=== PATIENT | female | born 1975 | race Two or more races ===

== ENCOUNTER → 2016-12-03 | Outpatient (CLI) | payer BC | LOC: RAD 07:28 | PROVIDERS: ATTEND Specialist | DX: C50.919 Malignant neoplasm of unspecified site of unspecified female breast (principal) | CPT/HCPCS: 70553; 78306; A9577; A9503; Q9969 ==

== ENCOUNTER → 2016-12-05 | Outpatient (CLI) | payer BC | LOC: RAD 07:40 | PROVIDERS: ATTEND Specialist | DX: C50.919 Malignant neoplasm of unspecified site of unspecified female breast (principal); R10.9 Unspecified abdominal pain; R07.9 Chest pain, unspecified | CPT/HCPCS: 71260; 74177 ==

== ENCOUNTER 2017-09-22 17:55 | Emergency (ER) | payer BC ==
[2017-09-22] MEDS ORDERED: NORMAL SALINE 1000 ML 1,000 ML IV ONE (18:35)
[2017-09-22] MEDS ORDERED: DIPHENHYDRAMINE HCL 50 MG/ML VIAL IV ONE (18:35)
[2017-09-22] MEDS ORDERED: METOCLOPRAMIDE HCL INJ/PF 10 MG/2 ML SDV IV ONE (18:35)
--- NOTE | 2017-09-22 18:38 | ER Document Report ---
ED Medical Screen (RME) - General Chief Complaint: Headache Stated Complaint: HEADACHE Time Seen by Provider: 09/22/17 18:35 Notes: Patient has a history of breast cancer with metastases to the lymph nodes. She is undergone chemotherapy in April of this year. She finished radiation 1 week ago. She had a mastectomy in June of this year. He states starting yesterday she has a diffuse throbbing headache. She states she does not have any metastasis to the brain that she knows of. She states she has a history of cluster headaches but this does not feel similar to that. She denies any vomiting. No cough cold or congestion. Patient states she is currently taking tamoxifen and started this 4 days ago.. She is also currently enrolled in a research trial but has not started the research drug at this time. TRAVEL OUTSIDE OF THE [place] IN LAST 30 DAYS: No - Related Data Allergies/Adverse Reactions: No Known Allergies Allergy (Unverified 09/22/17 18:07) Past Medical History Renal/ Medical History: Denies: Hx Peritoneal Dialysis Physical Exam - Vital signs Vitals: Temp Pulse Resp BP Pulse Ox 99.4 F 105 H 16 119/69 96 09/22/17 18:07 09/22/17 18:07 09/22/17 18:07 09/22/17 18:07 09/22/17 18:07 Course - Vital Signs Vital signs: Temp Pulse Resp BP Pulse Ox 99.4 F 105 H 16 119/69 96 09/22/17 18:07 09/22/17 18:07 09/22/17 18:07 09/22/17 18:07 09/22/17 18:07
[2017-09-22 19:22] LABS: ABSOLUTE EOSINOPHILS # (AUTO) 0.1 10^3/uL (0.0-0.6); ABSOLUTE LYMPHOCYTES (AUTO) 0.5 10^3/uL (0.5-4.7); ABSOLUTE MONOCYTES (AUTO) 0.6 10^3/uL (0.1-1.4); ABSOLUTE NEUT (AUTO) 5.3 10^3/uL (1.7-8.2); BASOPHILS % (AUTO) 0.3 % (0-2); EOSINOPHILS % (AUTO) 0.9 % (0-6); HEMATOCRIT 40.1 % (36.0-47.0); HEMOGLOBIN 13.9 g/dL (12.0-15.5); HGB HCT DIFFERENCE 1.6; LYMPHOCYTES % (AUTO) 7.6 % (13-45); MEAN CORPUSCULAR HGB CONC 34.7 g/dL (32.0-36.0); MEAN CORPUSCULAR VOLUME 87 fl (80-97); MONOCYTES % (AUTO) 8.9 % (3-13); RED BLOOD COUNT 4.63 10^6/uL (3.72-5.28); RED CELL DISTRIBUTION WIDTH 12.3 % (11.5-14.0); SEGMENTED NEUTROPHILS % (AUTO) 82.3 % (42-78); WHITE BLOOD COUNT 6.4 10^3/uL (4.0-10.5)
--- NOTE | 2017-09-22 19:34 | RADIOLOGY REPORT (SQ) ---
EXAM DESCRIPTION: CT HEAD WITHOUT COMPLETED DATE/TIME: 09/22/2017 7:15 pm REASON FOR STUDY: horvath/hx met cancer COMPARISON: None. TECHNIQUE: Axial images acquired through the brain without intravenous contrast. Images reviewed wi th bone, brain and subdural windows. Images stored on PACS. All CT scanners at this facility use dose modulation, iterative reconstruction, and/or weight based d osing when appropriate to reduce radiation dose to as low as reasonably achievable (ALARA). [facility]: Dose Right [facility]: CareDose [facility]: Dose Right [facility]: Teradose 4D [facility]: Smart [employer] RADIATION DOSE: Up-to-date CT equipment and radiation dose reduction techniques were employed. CTDIv ol: 64.6 mGy. DLP: 1034 mGy-cm. mGy. LIMITATIONS: None. FINDINGS: VENTRICLES: Normal size and contour. CEREBRUM: No masses. No hemorrhage. No midline shift. No evidence for acute infarction. Normal gra y/white matter differentiation. No areas of low density in the white matter. CEREBELLUM: No masses. No hemorrhage. No alteration of density. No evidence for acute infarction. EXTRAAXIAL SPACES: No fluid collections. No masses. ORBITS AND GLOBE: No intra- or extraconal masses. Normal contour of globe without masses. CALVARIUM: No fracture. PARANASAL SINUSES: No fluid or mucosal thickening. SOFT TISSUES: No mass or hematoma. OTHER: No other significant finding. IMPRESSION: NORMAL BRAIN CT WITHOUT CONTRAST. EVIDENCE OF ACUTE STROKE: NO. COMMENT: Quality ID # [id number]: Final reports with documentation of one or more dose reduction techniques (e.g., Automated exposure control, adjustment of the mA and/or kV according to patient size, use of iterative reconstruction technique) TECHNICAL DOCUMENTATION: JOB ID: [id number]- All Rights Reserved
[2017-09-22 19:40] LABS: ALANINE AMINOTRANSFERASE 62 U/L (9-52); ALBUMIN 4.7 g/dL (3.5-5.0); ALKALINE PHOSPHATASE 79 U/L (38-126); ANION GAP 13 (5-19); ASPARTATE AMINO TRANSFERASE 48 U/L (14-36); BILIRUBIN,DIRECT 0.4 mg/dL (0.0-0.4); BLOOD UREA NITROGEN 15 mg/dL (7-20); CALCIUM 9.9 mg/dL (8.4-10.2); CARBON DIOXIDE 29 mmol/L (22-30); CHLORIDE 99 mmol/L (98-107); CREATININE RESULT 0.92 mg/dL (0.52-1.25); GLUCOSE 94 mg/dL (75-110); POTASSIUM 4.5 mmol/L (3.6-5.0); SODIUM 140.9 mmol/L (137-145); TOTAL PROTEIN 7.5 g/dL (6.3-8.2)
[2017-09-22] MEDS ORDERED: PROCHLORPERAZINE EDISYLATE INJ 10 MG/2 ML VIAL IV ONE (20:06)
[2017-09-22] MEDS ORDERED: KETOROLAC TROMETHAMINE INJ/PF 30 MG/1 ML SDV IV ONE (20:07)
--- NOTE | 2017-09-22 21:15 | ER Document Report ---
ED Headache - General Chief Complaint: Headache Stated Complaint: HEADACHE Time Seen by Provider: 09/22/17 18:35 Notes: Patient is a 42-year-old female with a past medical history of breast cancer on tamoxifen maintenance therapy but no active chemotherapy who presents with a headache that has been present for the past 24 hours. She states that it as a severe, throbbing, bifrontal pain. She notes is worsened by lights, sounds and movement. She has tried Tylenol at home with no improvement of the headache. She has a history of cluster headaches but does not typically have headaches of this nature. The headache was gradual in onset and did get progressively worse. She denies any focal weakness, numbness, or altered mental status. She has not had any fever or constitutional symptoms. She has not seen her primary doctor regarding today's concerns. TRAVEL OUTSIDE OF THE [place] IN LAST 30 DAYS: No - Related Data Allergies/Adverse Reactions: No Known Allergies Allergy (Unverified 09/22/17 18:07) Home Medications: Current Home Medications Lorazepam [Lorazepam] 1 mg PO BID PRN 09/22/17 [History] Morphine Sulfate 15 mg PO Q6 PRN 09/22/17 [History] Past Medical History - General Information source: Patient - Social History Smoking Status: Never Smoker Frequency of alcohol use: None Drug Abuse: None Lives with: Spouse/Significant other Family History: Reviewed & Not Pertinent Patient has suicidal ideation: No Patient has homicidal ideation: No Renal/ Medical History: Denies: Hx Peritoneal Dialysis Review of Systems - Review of Systems Notes: Constitutional: Negative for fever. HENT: Negative for sore throat. Eyes: Negative for visual changes. Cardiovascular: Negative for chest pain. Respiratory: Negative for shortness of breath. Gastrointestinal: Negative for abdominal pain, vomiting or diarrhea. Genitourinary: Negative for dysuria. Musculoskeletal: Negative for back pain. Skin: Negative for rash. Neurological: Positive for headache 10 point ROS negative except as marked above and in HPI. Physical Exam - Vital signs Vitals: Temp Pulse Resp BP Pulse Ox 99.4 F 105 H 16 119/69 96 09/22/17 18:07 09/22/17 18:07 09/22/17 18:07 09/22/17 18:07 09/22/17 18:07 Interpretation: Tachycardic Notes: PHYSICAL EXAMINATION: GENERAL: Well-appearing, well-nourished and in no acute distress. HEAD: Atraumatic, normocephalic. EYES: Pupils equal round and reactive to light, extraocular movements intact, sclera anicteric, conjunctiva are normal. ENT: nares patent, oropharynx clear without exudates. Moist mucous membranes. NECK: Normal range of motion, supple without lymphadenopathy LUNGS: Breath sounds clear to auscultation bilaterally and equal. No wheezes rales or rhonchi. HEART: Regular rate and rhythm without murmurs ABDOMEN: Soft, nontender, normoactive bowel sounds. No guarding, no rebound. No masses appreciated. EXTREMITIES: Normal range of motion, no pitting or edema. No cyanosis. NEUROLOGICAL: Face symmetric. Tongue protrudes midline. Extraocular motions intact. Pupils are 2 mm and equally reactive. Normal speech, normal gait. 5 out of 5 strength in both the distal and proximal upper and lower extremities bilaterally. Sensation is grossly intact throughout. Finger to nose testing normal. Pronator drift normal. PSYCH: Normal mood, normal affect. SKIN: Warm, Dry, normal turgor, no rashes or lesions noted. Course - Re-evaluation Re-evalutation: 09/22/17 21:10 Presentation of a headache that appears to be most consistent with tension versus migrainous type headache. Headache was not maximal in onset, patient has no focal neurologic deficits, no nuchal rigidity, vital signs within normal limits, no papilledema, and patient is overall well in appearance. Based on clinical history and examination I do not suspect an acute subarachnoid hemorrhage, dural venous sinus thrombosis, acute meningitis, or intercranial mass. In triage labs were ordered and a noncontrasted head CT was also ordered apparently to evaluate for metastases to the brain. This noncontrasted CT did not demonstrate any evidence of an acute metastases but patient does not have a clinical history to suggest this diagnosis either and has again no focal neurologic deficit on examination to suggest an acute mass-effect. At this time will discharge with return precautions and follow-up recommendations. Verbal discharge instructions given a the bedside and opportunity for questions given. Medication warnings reviewed. Patient is in agreement with this plan and has verbalized understanding of return precautions and the need for primary care follow-up in the next 24-72 hours. - Vital Signs Vital signs: Temp Pulse Resp BP Pulse Ox 98.5 F 102 H 16 104/59 L 97 10/30/17 21:25 09/22/17 21:25 09/22/17 21:25 09/22/17 21:25 09/22/17 21:25 - Laboratory Result Diagrams: 09/22/17 19:00 09/22/17 19:00 Laboratory results interpreted by me: 09/22/17 09/22/17 19:00 19:00 Seg Neutrophils % 82.3 H Lymphocytes % 7.6 L AST 48 H ALT 62 H - Diagnostic Test Radiology reviewed: Image reviewed, Reports reviewed Radiology results interpreted by me: 09/22/17 21:14 CT head: No acute intracranial bleed or evidence of metastases although this is a noncontrasted scan. Discharge - Discharge Clinical Impression: Headache Qualifiers: Headache type: unspecified Headache chronicity pattern: acute headache Intractability: not intractable Qualified Code(s): R51 - Headache Vomiting Qualifiers: Vomiting type: unspecified Vomiting Intractability: non-intractable Nausea presence: with nausea Qualified Code(s): R11.2 - Nausea with vomiting, unspecified Condition: Good Disposition: HOME, SELF-CARE Additional Instructions: You have been seen in the Emergency Department (ED) for a headache. Please use Tylenol (acetaminophen) or Motrin (ibuprofen) as needed for symptoms, but only as written on the box. As we have discussed, please follow up with your primary care doctor as soon as possible regarding today's ED visit and your headache symptoms. Call your doctor or return to the ED if you have a worsening headache, sudden and severe headache, confusion, slurred speech, facial droop, weakness or numbness in any arm or leg, extreme fatigue, or other symptoms that concern you.
[2017-09-22 21:25] VITALS: BP 104/59
== END 2017-09-22 21:27 | disposition home or self-care (01) ==
LOC: ER 17:55
DX: R51 Headache (principal); R11.2 Nausea with vomiting, unspecified; R00.0 Tachycardia, unspecified; Z85.3 Personal history of malignant neoplasm of breast; Z79.899 Other long term (current) drug therapy
CPT/HCPCS: 99284; 96361; 96374; 96375; 36415; 85025; 80053; 70450; J1200; J1885; J2765; J0780; J7030

== ENCOUNTER 2018-01-17 22:46 | Emergency (ER) | payer BC ==
[2018-01-18] MEDS ORDERED: CEPHALEXIN 500 MG CAPSULE PO ONE (00:47)
[2018-01-18] MEDS ORDERED: SULFAMETHOXAZOLE/TRIMETHOPRIM 800-160 MG TABLET PO ONE (00:47)
[2018-01-18] MEDS ORDERED: HYDROCODONE/ACETAMINOPHEN 5-325 MG (6 TAB/ER DISP) PO PRN (00:47)
--- NOTE | 2018-01-18 00:56 | ER Document Report ---
ED General - General Chief Complaint: Swelling Stated Complaint: SWELLING IN NECK Time Seen by Provider: 01/18/18 00:24 Notes: Patient is a 42-year-old female with a past medical history of breast cancer currently in remission who presents with 2 weeks of increasing swelling and pain to the left base of her scalp. She noticed an area of soft tissue swelling and redness that has gotten progressively worse over that period of time. She states she became concerned when she noticed multiple lymph nodes also becoming quite swollen. She describes there is a dull, constant, throbbing pain. She notes any touching or pressure the area worsens the pain. She has not tried any to improve her pain. She denies any history of the same in the past. She denies any fever or constitutional symptoms. No weight loss. She has not yet followed up with her primary care doctor regarding this concern. TRAVEL OUTSIDE OF THE [place] IN LAST 30 DAYS: No - Related Data Allergies/Adverse Reactions: No Known Allergies Allergy (Unverified 09/22/17 18:07) Past Medical History - General Information source: Patient - Social History Smoking Status: Never Smoker Frequency of alcohol use: None Drug Abuse: None Lives with: Spouse/Significant other Family History: Reviewed & Not Pertinent Renal/ Medical History: Denies: Hx Peritoneal Dialysis Review of Systems - Review of Systems Notes: Constitutional: Negative for fever. HENT: Positive for lymphadenopathy Eyes: Negative for visual changes. Cardiovascular: Negative for chest pain. Respiratory: Negative for shortness of breath. Gastrointestinal: Negative for abdominal pain, vomiting or diarrhea. Genitourinary: Negative for dysuria. Musculoskeletal: Negative for back pain. Skin: Positive for Toft soft tissue swelling Neurological: Negative for headaches, weakness or numbness. 10 point ROS negative except as marked above and in HPI. Physical Exam - Vital signs Notes: PHYSICAL EXAMINATION: GENERAL: Well-appearing, well-nourished and in no acute distress. HEAD: Atraumatic, normocephalic. EYES: Pupils equal round and reactive to light, extraocular movements intact, sclera anicteric, conjunctiva are normal. ENT: nares patent, oropharynx clear without exudates. Moist mucous membranes. NECK: Normal range of motion, left-sided posterior cervical lymphadenopathy as well as lymphadenopathy just above the clavicle on the shoulder on the left side LUNGS: Breath sounds clear to auscultation bilaterally and equal. No wheezes rales or rhonchi. HEART: Regular rate and rhythm without murmurs ABDOMEN: Soft, nontender, normoactive bowel sounds. No guarding, no rebound. No masses appreciated. EXTREMITIES: Normal range of motion, no pitting or edema. No cyanosis. NEUROLOGICAL: No focal neurological deficits. Moves all extremities spontaneously and on command. PSYCH: Normal mood, normal affect. SKIN: Warm, Dry, normal turgor, there is a 2 x 2 cm area of soft tissue swelling without any fluctuance or induration at the left base of the scalp. Several areas are open and erythematous in the area and appear to be leaking serous fluid. Course - Re-evaluation Re-evalutation: 01/18/18 00:48 Patient presents with swelling of what appears to be a possible sebaceous cyst at the left low base of the scalp where that meets the neck with associated lymphadenopathy. The area itself appears to have an associated cellulitis and erythema and I suspect that this is an acute infection of the soft tissue at the base of the scalp with associated lymphadenopathy. Alternative consideration would certainly be recurrence of the patient's underlying malignancy although this would be a very unusual presentation of a skin and soft tissue swelling for possible area of metastasis. Moreover pain the patient 's lymphadenopathy does not demonstrate any the characteristics of what one would anticipate for recurrence of malignancy as it is very tender, mobile and soft. I had an extensive conversation with the patient and her at the bedside about beginning antibiotics and seeing if there is an improvement in her symptoms over the course the next several days and if there is failure of this treatment proceeding with further diagnostic imaging to evaluate for a possible recurrence of malignancy versus proceeding with these tests now. The family is in agreement with avoiding aggressive imaging at this time to reduce radiation exposure and have verbalized they will return in the next several days if she is not having improvement on antibiotics. At this time will discharge with return precautions and follow-up recommendations. Verbal discharge instructions given a the bedside and opportunity for questions given. Medication warnings reviewed. Patient is in agreement with this plan and has verbalized understanding of return precautions and the need for primary care follow-up in the next 24-72 hours. Discharge - Discharge Clinical Impression: Soft tissue infection, Reactive cervical lymphadenopathy Condition: Good Disposition: HOME, SELF-CARE Additional Instructions: The rash is likely due to infection of your skin. You need to take the antibiotics as prescribed. Do not stop even if the swelling goes away until you have completed all the antibiotics. Please return if he notes spreading redness from the area or if your having failure to have symptom improvement within the next 3-4 days. You should also return if you develop fevers with temperature greater than 101, persistent vomiting, worsening pain, or have any other symptoms that are concerning to you. Please follow-up with your primary doctor within the next 48 hours for recheck of the area. Prescriptions: Cephalexin Monohydrate [Keflex 500 mg Capsule] 500 mg PO Q6H 5 Days capsule Sulfamethoxazole/Trimethoprim [Bactrim Ds Tablet] 1 tab PO BID #14 tablet
[2018-01-18 01:21] VITALS: BP 102/70
== END 2018-01-18 01:21 | disposition home or self-care (01) ==
LOC: ER 22:46
DX: B99.9 Unspecified infectious disease (principal); R59.0 Localized enlarged lymph nodes; Z85.3 Personal history of malignant neoplasm of breast; R51 Headache
CPT/HCPCS: 99283

== ENCOUNTER 2019-01-25 20:57 | Emergency (ER) | payer OTHER ==
[2019-01-25] MEDS ORDERED: RINGERS SOLUTION,LACTATED 1,000 ML IV ONE (21:12)
[2019-01-25] MEDS ORDERED: KETOROLAC TROMETHAMINE INJ/PF 30 MG/1 ML SDV IV ONE (22:45)
--- NOTE | 2019-01-25 23:26 | ER Document Report ---
ED General - General Chief Complaint: Abdominal Pain Stated Complaint: SIDE AND BACK PAIN Time Seen by Provider: 01/25/19 21:11 Notes: Patient is a 43-year-old female with a remote history of breast cancer, currently takes only tamoxifen who presents with bilateral flank pain that has been ongoing for the past 48 hours. Patient states that her symptoms started gradually, have been constant since that time. Throbbing, aching, constant pain to bilateral flanks. Nothing improves the pain including her home pain medication. Nothing seems to worsen her symptoms. Reports a history of similar symptoms in the past when she has had kidney infections. Denies fever or constitutional symptoms. No dysuria. Has not seen her primary care physician regarding today's concerns. TRAVEL OUTSIDE OF THE [place] IN LAST 30 DAYS: No - Related Data Allergies/Adverse Reactions: No Known Allergies Allergy (Unverified 09/22/17 18:07) Past Medical History - General Information source: Patient - Social History Smoking Status: Current Every Day Smoker Chew tobacco use (# tins/day): No Frequency of alcohol use: None Drug Abuse: None Lives with: Spouse/Significant other Family History: Reviewed & Not Pertinent Patient has suicidal ideation: No Patient has homicidal ideation: No Renal/ Medical History: Denies: Hx Peritoneal Dialysis Review of Systems - Review of Systems Notes: Constitutional: Negative for fever. HENT: Negative for sore throat. Eyes: Negative for visual changes. Cardiovascular: Negative for chest pain. Respiratory: Negative for shortness of breath. Gastrointestinal: Positive for nausea and bilateral flank pain Genitourinary: Negative for dysuria. Musculoskeletal: Negative for back pain. Skin: Negative for rash. Neurological: Negative for headaches, weakness or numbness. 10 point ROS negative except as marked above and in HPI. Physical Exam - Vital signs Vitals: Temp Pulse Resp BP Pulse Ox 98.4 F 87 16 108/67 98 01/25/19 21:46 01/25/19 21:46 01/25/19 21:46 01/25/19 21:46 01/25/19 21:46 Interpretation: Normal Notes: PHYSICAL EXAMINATION: GENERAL: Well-appearing, well-nourished and in no acute distress. HEAD: Atraumatic, normocephalic. EYES: Pupils equal round and reactive to light, extraocular movements intact, sclera anicteric, conjunctiva are normal. ENT: nares patent, oropharynx clear without exudates. Moderately dry mucous membranes. NECK: Normal range of motion, supple without lymphadenopathy LUNGS: Breath sounds clear to auscultation bilaterally and equal. No wheezes rales or rhonchi. HEART: Regular rate and rhythm without murmurs ABDOMEN: Soft, no focal abdominal tenderness, bilateral CVA tenderness, normoactive bowel sounds. No guarding, no rebound. No masses appreciated. EXTREMITIES: Normal range of motion, no pitting or edema. No cyanosis. NEUROLOGICAL: No focal neurological deficits. Moves all extremities spontaneously and on command. PSYCH: Normal mood, normal affect. SKIN: Warm, Dry, normal turgor, no rashes or lesions noted. Course - Re-evaluation Re-evalutation: 01/25/19 23:25 Patient presents with bilateral CVA tenderness otherwise extremely well in appearance on exam. Abdominal exam without any areas of focal tenderness, rebound or guarding. Patient is status post appendectomy. Clinical history is not consistent with acute pink otitis, biliary pathology, bowel obstruction, bowel perforation, no lower abdominal tenderness to suggest pelvic inflammatory disease or tube ovarian abscess. Pyelonephritis would make sense although patient does not have constitutional symptoms nor has she had dysuria. Labs and urinalysis are pending. 01/26/19 01:20 Urinalysis consistent with a urinary tract infection although specimen is contaminated. Given patient's bilateral flank discomfort will begin treatment empirically with oral cephalexin for the next 7 days. Patient is otherwise very well in appearance, remainder of labs are unremarkable. I do not clinically suspect epidural abscess, metastatic disease, or any of the above listed pathology at this time. At this time will discharge with return precautions and follow-up recommendations. Verbal discharge instructions given a the bedside and opportunity for questions given. Medication warnings reviewed. Patient is in agreement with this plan and has verbalized understanding of return precautions and the need for primary care follow-up in the next 24-72 hours. - Vital Signs Vital signs: Temp Pulse Resp BP Pulse Ox 98.4 F 87 16 108/67 98 01/25/19 21:46 01/25/19 21:46 01/25/19 21:46 01/25/19 21:46 01/25/19 21:46 - Laboratory Result Diagrams: 01/25/19 23:22 01/25/19 23:22 Laboratory results interpreted by me: 01/25/19 01/25/19 01/26/19 23:22 23:22 00:38 Hct 35.6 L Glucose 130 H Ur Leukocyte Esterase LARGE H Discharge - Discharge Clinical Impression: Bilateral flank pain Urinary tract infection Qualifiers: Urinary tract infection type: site unspecified Hematuria presence: without hematuria Qualified Code(s): N39.0 - Urinary tract infection, site not specified Condition: Good Disposition: HOME, SELF-CARE Additional Instructions: Your seen today for bilateral flank pain, your urine is consistent with an infection. You have been given a dose of antibiotics here in the emergency department to help begin to treat this infection. Your also being sent home on antibiotics. Please start taking these later on today when you fill the prescription. Complete the course even if you feel better. Please return if you have persistent vomiting, pass out, have worsening pain, become unable to tolerate fluids, or have any other symptoms that are concerning to you. Please follow-up with your primary care physician in the next 24-48 hours. Prescriptions: Cephalexin Monohydrate [Keflex 500 mg Capsule] 500 mg PO Q6H 7 Days capsule
[2019-01-25 23:36] LABS: ABSOLUTE EOSINOPHILS # (AUTO) 0.1 10^3/uL (0.0-0.6); ABSOLUTE LYMPHOCYTES (AUTO) 1.7 10^3/uL (0.5-4.7); ABSOLUTE MONOCYTES (AUTO) 0.6 10^3/uL (0.1-1.4); ABSOLUTE NEUT (AUTO) 6.6 10^3/uL (1.7-8.2); BASOPHILS % (AUTO) 0.4 % (0-2); EOSINOPHILS % (AUTO) 1.1 % (0-6); HEMATOCRIT 35.6 % (36.0-47.0); HEMOGLOBIN 12.6 g/dL (12.0-15.5); MEAN CORPUSCULAR HEMOGLOBIN 32.1 pg (27.0-33.4); MEAN CORPUSCULAR HGB CONC 35.3 g/dL (32.0-36.0); MEAN CORPUSCULAR VOLUME 91 fl (80-97); MONOCYTES % (AUTO) 6.3 % (3-13); PLATELET COUNT 213 10^3/uL (150-450); RED BLOOD COUNT 3.91 10^6/uL (3.72-5.28); RED CELL DISTRIBUTION WIDTH 12.5 % (11.5-14.0); SEGMENTED NEUTROPHILS % (AUTO) 73.2 % (42-78); TOTAL CELLS COUNTED % (AUTO) 100 %
[2019-01-26 00:55] LABS: APPEARANCE,URINE CLOUDY; BILIRUBIN,URINE NEGATIVE (NEGATIVE); COLOR,URINE YELLOW; GLUCOSE, URINE NEGATIVE (NEGATIVE); KETONES,URINE NEGATIVE (NEGATIVE); LEUKOCYTE ESTERASE,URINE LARGE (NEGATIVE); NITRITE,URINE NEGATIVE (NEGATIVE); PROTEIN,URINE NEGATIVE (NEGATIVE); URINE SPECIFIC GRAVITY 1.021; UROBILINOGEN,URINE NEGATIVE mg/dL (<2.0)
[2019-01-26 01:01] LABS: ALANINE AMINOTRANSFERASE 47 U/L (9-52); ALBUMIN 3.9 g/dL (3.5-5.0); ALKALINE PHOSPHATASE 83 U/L (38-126); ANION GAP 8 (5-19); ASPARTATE AMINO TRANSFERASE 34 U/L (14-36); BILIRUBIN,DIRECT 0.2 mg/dL (0.0-0.4); BILIRUBIN,TOTAL 0.2 mg/dL (0.2-1.3); BLOOD UREA NITROGEN 15 mg/dL (7-20); CALCIUM 9.2 mg/dL (8.4-10.2); CARBON DIOXIDE 26 mmol/L (22-30); CHLORIDE 107 mmol/L (98-107); GLUCOSE 130 mg/dL (75-110); POTASSIUM 4.2 mmol/L (3.6-5.0); SODIUM 141.1 mmol/L (137-145); TOTAL PROTEIN 6.3 g/dL (6.3-8.2)
[2019-01-26] MEDS ORDERED: CEPHALEXIN 500 MG CAPSULE PO ONE (01:20)
[2019-01-26 01:38] VITALS: BP 113/66
== END 2019-01-26 01:40 | disposition home or self-care (01) ==
LOC: ER 20:57
DX: N39.0 Urinary tract infection, site not specified (principal); R10.9 Unspecified abdominal pain; F17.200 Nicotine dependence, unspecified, uncomplicated
CPT/HCPCS: 99284; 96374; 36415; 87086; 85025; 81025; 80053; 81001; J1885